=== PATIENT | male | born 1970 | race Two or more races ===

== ENCOUNTER 2021-08-04 02:21 | Emergency (ER) | payer SELFPAY ==
[~2021-08-04] VITALS: Ht 165.1 cm; Wt 63.5 kg
--- NOTE | 2021-08-04 02:49 | NUR ---
Dr. Javed with patient for MSE.
[2021-08-04] MEDS ORDERED: KETOROLAC TROMETHAMINE 60 MG INJ IM ONE ×2 (03:00→03:10)
[2021-08-04] MEDS ORDERED: HYDROMORPHONE 1 MG/1 ML DISP.SYRIN IM ONE (03:00)
[2021-08-04] MEDS ORDERED: HYDROMORPHONE 2 MG/1 ML DISP.SYRIN ONE (03:10)
[2021-08-04] MEDS ORDERED: ONDANSETRON ODT 4 MG TAB.RAPDIS SL ONE (03:15)
[2021-08-04] MEDS ORDERED: HYDR-3980 PO (03:18)
[2021-08-04] MEDS ORDERED: ONDANSETRON ODT 4 MG TAB.RAPDIS ONE (03:20)
--- NOTE | 2021-08-04 03:33 | NUR ---
Dr. Javed at bedside for procedure.
--- NOTE | 2021-08-04 03:42 | NUR ---
Patient discharged to home in stable condition. Written and verbal after care instructions given. Patient verbalizes understanding of instructions. Stressed follow up or return to ER for worsening s/s. pt amb with assist, no c/o pain.
[2021-08-04 03:43] VITALS: BP 113/74
== END 2021-08-04 03:43 | disposition home or self-care (01) ==
LOC: ER 02:34
DX: S43.015A Anterior dislocation of left humerus, initial encounter (principal); X50.9XXA Other and unspecified overexertion or strenuous movements or postures, initial encounter; X50.0XXA Overexertion from strenuous movement or load, initial encounter; Y93.89 Activity, other specified; Y99.8 Other external cause status
CPT/HCPCS: 23650; 73020 ×2; 96372 ×2; 99284; J1170; J1885; A4663; Q0162